=== PATIENT | female | born 1990 | race Caucasian/White ===

== ENCOUNTER 2019-10-18 08:36 | Inpatient (IN) ==
[~2019-10-18 08:36] MED LIST: *HR* FentaNYL (PF) 100 MCG/2 ML VIAL IVP PRN; Azithromycin 500 MG in 0.9 % Sodium Chloride 250 ML IVPB PRN; Famotidine 20 MG/2 ML VIAL IVP PRN; Lidocaine 1% 20 ML MDV INFILT PRN; Metoclopramide 10 MG/2 ML VIAL IVP PRN; Naloxone 0.4 MG/ML INJ IVP PRN; Ondansetron 4 MG/2 ML VIAL IVP PRN
[2019-10-18] MEDS ORDERED: Oxytocin 20 units/ LR 1000 mL 20 UNIT/1,000 ML BAG IVC SCH (08:45)
[2019-10-18 09:26] LABS: Basophils % 0.2 %; Eosinophils % 0.3 %; Hemoglobin 13.9 g/dL (11.5-15.4); Immature Granulocytes % 0.2 % (0-4); Mean Corpuscular HGB Conc 32.3 g/dL (31.6-35.5); Mean Corpuscular Hemoglobin 29.3 pg (28.0-33.3); Mean Corpuscular Volume 90.7 fL (83.0-100.0); Mean Platelet Volume 11.6 fL (9.4-12.4); Monocytes # 0.5 K/mcL (0.0-1.3); Monocytes % 5.3 %; Neutrophils # 7.4 K/mcL (1.6-8.9); Platelet Count 194 K/mcL (140-400); Red Blood Count 4.74 M/mcL (3.82-4.97); Red Cell Distribution Width 13.8 % (11.5-14.5); White Blood Count 8.9 K/mcL (4.3-11.1)
[2019-10-18 09:33] LABS: Amphetamine Screen,Urine Negative ng/mL (Cutoff=1000); Barbiturate Screen,Urine Negative ng/mL (Cutoff=200); Benzodiazepines Screen,Urine Negative ng/mL (Cutoff=200); Cannabinoid Screen,Urine Negative ng/mL (Cutoff = 50); Cocaine Screen,Urine Negative ng/mL (Cutoff= 300); Opiate Screen,Urine Negative ng/mL (Cutoff=300); Phencyclidine Screen,Urine Negative ng/mL (Cutoff=25)
[2019-10-18] MEDS: Ringers Solution, Lactated 1,000 ML IVC SCH (09:51)
[2019-10-18] MEDS ORDERED: *HR* FentaNYL (PF) 100 MCG/2 ML VIAL EP ONE (11:52)
[2019-10-18] MEDS ORDERED: EPHEDrine 50 MG/ML VIAL IVP PRN ×2 (11:52→11:53)
[2019-10-18] MEDS ORDERED: Ropivacaine/PF 0.2% 20 ML VIAL EP ONE (11:53)
[2019-10-18 19:28] LABS: Aspartate Amino Transferase 16 Units/L (13-39); BUN/Creatinine Ratio 12 (6-26); Blood Urea Nitrogen 6 mg/dL (6-20); eGFR For African Americans > 60 (> 60); eGFR For Non-African Americans > 60 (> 60)
[2019-10-19] MEDS: Epidural Premix (fent/bupiv) 110 ML EP SCH ×3 (03:50→16:11)
[2019-10-19] MEDS ORDERED: *HR* FentaNYL (PF) 100 MCG/2 ML VIAL ONE (06:36)
[2019-10-19] MEDS ORDERED: Ropivacaine/PF 0.2% 20 ML VIAL ONE (11:41)
[2019-10-19] MEDS ORDERED: Oxytocin 20 units/ LR 1000 mL 20 UNIT/1,000 ML BAG IVC SCH ×2 (12:53→22:00)
[2019-10-19] MEDS: Ringers Solution, Lactated 1,000 ML IVC SCH (13:43)
[2019-10-19] MEDS ORDERED: Lidocaine/EPI 1:200k 2% PF 20 ML VIAL ONE (18:02)
[2019-10-19] MEDS ORDERED: *HR* Oxytocin 10 UNIT/ML VIAL IM ONE ×2 (18:13→19:00)
[2019-10-19] MEDS ORDERED: Ringers Solution, Lactated 1,000 ML ONE ×2 (18:13→19:00)
[2019-10-19] MEDS ORDERED: *HR* Morphine Sulfate/PF 10 MG/10 ML AMPUL ONE (18:25)
[2019-10-19] MEDS ORDERED: Ondansetron 4 MG/2 ML VIAL ONE (18:33)
[2019-10-19] MEDS ORDERED: Ondansetron 4 MG/2 ML VIAL IVP ONE (18:53)
[2019-10-19] MEDS ORDERED: *HR* OxyCODONE Immed Rel 5 MG TABLET PO PRN (18:53)
[2019-10-19] MEDS ORDERED: *HR* HYDROmorphone PF 0.5 MG/0.5 ML SYRINGE IVP PRN (18:53)
[2019-10-19] MEDS ORDERED: *HR* Promethazine 25 MG/ML VIAL IVP PRN (18:53)
[2019-10-19] MEDS ORDERED: Acetaminophen IV 1,000 MG/100 ML INFUS..BTL ONE (18:54)
[2019-10-19] MEDS ORDERED: Sennosides 8.6 MG TABLET PO PRN (22:00)
[2019-10-19] MEDS ORDERED: Metoclopramide 10 MG/2 ML VIAL IVP PRN (22:00)
[2019-10-19] MEDS ORDERED: Simethicone 80 MG TAB.CHEW PO PRN (22:00)
[2019-10-19] MEDS ORDERED: Ondansetron 4 MG/2 ML VIAL IVP PRN (22:00)
[2019-10-20] MEDS: Ibuprofen 600 MG TABLET PO PRN ×2 (05:48→20:18)
[2019-10-20 06:39] LABS: Basophils % 0.2 %; Eosinophils % 0.2 %; Hematocrit 38.3 % (35.3-44.9); Hemoglobin 12.7 g/dL (11.5-15.4); Immature Granulocytes % 0.3 % (0-4); Lymphocytes # 0.4 K/mcL (0.6-4.6); Lymphocytes % 2.3 %; Mean Corpuscular HGB Conc 33.2 g/dL (31.6-35.5); Mean Corpuscular Hemoglobin 29.9 pg (28.0-33.3); Mean Corpuscular Volume 90.1 fL (83.0-100.0); Mean Platelet Volume 11.2 fL (9.4-12.4); Monocytes # 0.6 K/mcL (0.0-1.3); Monocytes % 3.2 %; Neutrophils # 16.5 K/mcL (1.6-8.9); Platelet Count 180 K/mcL (140-400); Red Blood Count 4.25 M/mcL (3.82-4.97); Red Cell Distribution Width 14.1 % (11.5-14.5); Segmented Neutrophils % 93.8 %; White Blood Count 17.6 K/mcL (4.3-11.1)
[2019-10-20] MEDS: Prenatal Vit/FA 1 EACH TABLET PO SCH (09:29)
[2019-10-20] MEDS: cephALEXin 500 MG CAPSULE PO SCH ×3 (09:30→20:18)
[2019-10-20] MEDS: metroNIDAZOLE 500 MG TABLET PO SCH ×3 (09:30→20:18)
[2019-10-20] MEDS ORDERED: Ringers Solution, Lactated 1,000 ML ONE (10:45)
[2019-10-20] MEDS ORDERED: Ringers Solution, Lactated 1,000 ML IVC ONE (10:51)
[2019-10-20] MEDS ORDERED: Methylergonovine 0.2 MG/ML AMPUL IM ONE (11:44)
[2019-10-20] MEDS: *HR* OxyCODONE/APAP 5/325 TABLET PO PRN (15:50)
[2019-10-21] MEDS: *HR* OxyCODONE/APAP 5/325 TABLET PO PRN (00:27)
[2019-10-21] MEDS: metroNIDAZOLE 500 MG TABLET PO SCH (08:10)
[2019-10-21] MEDS: Prenatal Vit/FA 1 EACH TABLET PO SCH (08:10)
[2019-10-21] MEDS: cephALEXin 500 MG CAPSULE PO SCH (08:11)
[2019-10-21] MEDS: Ibuprofen 600 MG TABLET PO PRN (08:11)
[2019-10-21 09:57] VITALS: BP 127/86
== END 2019-10-21 11:45 | disposition home or self-care (01) | DRG 788 ==
LOC: 1NENULAB → 1NENUOBS 10-19 21:53
PROVIDERS: ADMIT Obstetrics & Gynecology; ATTEND Obstetrics & Gynecology